=== PATIENT | female | born 2000 | race Caucasian/White ===

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

== ENCOUNTER 2021-08-10 10:19 | Emergency (ER) | payer SELFPAY ==
[~2021-08-10] VITALS: Ht 144.8 cm; Wt 44.9 kg
[2021-08-10 10:21] VITALS: BP 145/69
[2021-08-10] MEDS: METOCLOPRAMIDE 10 MG/2 ML INJ VIAL IVP ONE (11:20)
[2021-08-10] MEDS: LACTATED RINGERS 1,000 ML IV ONE ×3 (11:20→13:21)
[2021-08-10 11:38] LABS: ALBUMIN 4.9 g/dL (3.4-5.0); ANION GAP 20.1 (8-16); CARBON DIOXIDE 23.1 mmol/L (21-32); CREATININE 0.8 mg/dL (0.6-1.3); POTASSIUM 3.2 mmol/L (3.5-5.1); TOTAL BILIRUBIN 0.9 mg/dL (0.0-1.0)
[2021-08-10 11:44] LABS: BASOPHILS # (AUTO) 0.1 K/uL (0.00-0.22); BASOPHILS % (AUTO) 0.3 % (0.0-2.0); HEMATOCRIT 46.2 % (36-48); HEMOGLOBIN 15.6 g/dL (12.0-16.0); LYMPHOCYTES # (AUTO) 1.1 K/uL (2.5-16.5); LYMPHOCYTES % (AUTO) 4.7 % (20.5-51.1); MEAN CORPUSCULAR HEMOGLOBIN 30 pg (27-31); MEAN CORPUSCULAR HGB CONC 34 g/dL (33-37); MEAN CORPUSCULAR VOLUME 87.6 fL (80-94); MONOCYTES # (AUTO) 1.6 K/uL (0.8-1.0); MONOCYTES % (AUTO) 7.2 % (1.7-9.3); NEUTROPHILS # (AUTO) 20.1 K/uL (1.8-7.7); NEUTROPHILS % (AUTO) 87.8 % (42.2-75.2); PLATELET COUNT (AUTO) 315 K/uL (140-450); RED BLOOD CELL COUNT(AUTO) 5.27 MIL/uL (4.20-5.40); WHITE BLOOD COUNT (AUTO) 22.9 K/uL (4.5-11.0)
[2021-08-10 12:03] LABS: APPEARANCE,URINE HAZY (CLEAR); BILIRUBIN,URINE 2+ (NEGATIVE); BLOOD, URINE NEGATIVE (NEGATIVE); COLOR,URINE YELLOW (YELLOW); LEUKOCYTE ESTERASE ,URINE NEGATIVE (NEGATIVE); NITRITE, URINE NEGATIVE (NEGATIVE); UGLUCOSE NEGATIVE (NEGATIVE)
[2021-08-10 12:12] LABS: RBC,URINE 0-5 /HPF (0-5); WBC,URINE 0-5 /HPF (0-5)
[2021-08-10 12:13] LABS: URINE AMORPHOUS URATE 1+ /HPF (None Seen)
[2021-08-10] MEDS ORDERED: DOXY1TCP PO (13:11)
[2021-08-10] MEDS ORDERED: NITR100C7 PO (14:12)
[2021-08-10 14:26] VITALS: BP 145/69
== END 2021-08-10 14:26 | disposition home or self-care (01) ==
LOC: MED 10:19
DX: O23.41 Unspecified infection of urinary tract in pregnancy, first trimester (principal); E86.0 Dehydration; J45.909 Unspecified asthma, uncomplicated; F31.9 Bipolar disorder, unspecified; Z3A.01 Less than 8 weeks gestation of pregnancy
CPT/HCPCS: 36415; 76817; 80053; 81001; 81025; 83690; 84702; 85025; 86900; 86901; 96361; 96374; 99284; J2765; Q0092